=== PATIENT | male | born 1955 | race Caucasian/White ===

== ENCOUNTER 2017-08-08 20:41 | Emergency (ER) | payer OTHER, MEDICAID ==
--- NOTE | 2017-08-08 22:10 | EDPHY ---
General Time Seen by Provider: 08/08/17 22:04 Narrative: CHIEF COMPLAINT: Fall, scalp laceration HISTORY OF PRESENT ILLNESS: Patient presents from [place] with reports of fall. Conflicting reports as to whether this was witnessed or not. He has no complaints other than laceration to the occiput. No headache or neck pain. No chest, back or abdominal pain. No complaints of pain in the extremities. He does have bleeding from the scalp that has stopped with pressure. No numbness, tingling or weakness. The patient is history of Yesenia's dementia with reported baseline of A&O x2. No other associated with small factors REVIEW OF SYSTEMS: Ten systems reviewed and are negative unless otherwise noted in the HPI PCP: Does not know SPECIALISTS: Neurology PAST MEDICAL HISTORY: Addison's, Insulin dependent DM, dementia, depression PAST SURGICAL HISTORY: No recent surgeries SOCIAL HISTORY: Currently resides in [place] with dementia FAMILY HISTORY: Unable to obtain from the patient EXAMINATION General Appearance: Alert, no distress Head: normocephalic. No Hatch sign. No raccoon eyes. There is a 2.5 cm laceration with a transverse lie over the occiput. No pulsatile bleeding. No foreign body. No injury to the galea. Eyes: Pupils equal and round, no conjunctival pallor or injection. EOM symmetric ENT, Mouth: Mucous membranes moist Neck: Normal inspection, supple, non-tender Respiratory: Lungs are clear to auscultation Cardiovascular: Regular rate and rhythm. No murmur Gastrointestinal: Abdomen is soft and nontender Back: non-tender, no bony abnormalities Neurological: Alert to person and place. No focal deficits. Strength is symmetric in all 4 limbs. Skin: Warm and dry, no rash. No petechiae or purpura. Scalp laceration as above Extremities: Nontender, no pedal edema. Moving all 4 extremities spontaneously Psychiatric: Mood and affect normal DIFFERENTIAL DIAGNOSES: Including but not limited to intracranial hemorrhage, concussion, skull fracture , laceration, sprain, strain, rib fracture, pneumothorax, hemothorax MDM: 10:10 p.m. Reported mechanical fall with scalp laceration to the occiput. He is awake and alert to baseline. He has no complaints of pain anywhere. He does have borderline hypoxemia that is positional. He does not appear to be on supplemental oxygen at his residence. I have ordered CT scans of the head and cervical spine due to baseline dementia and mechanical fall. He will require scalp laceration repair. 10:40 p.m. Laceration has been anesthetized. Proceed with irrigation closure. Chest x- ray is unremarkable as read by me without the aid of the radiologist. CT scans are pending 11:15 p.m. Notified by radiologist Dr. Alejandro. There are no acute findings on the CT scans of the head and cervical spine. 11:20 p.m. Patient re-evaluated. I have repaired the scalp laceration without difficulty. He remains alert to baseline. He is ambulated with his walker without difficulty. Vital signs remained stable. He will be discharged back to his residence at [place]. RN is calling Report. He will need to return here in 10 days for staple removal or have the removed there. PROCEDURE: Laceration repair Consent: Verbal Location: Occipital scalp Length of repair: 2.5 cm Complexity: Simple Layer involvement: Single Anesthesia: Local. 0.5% Marcaine with epinephrine. 5 mL Irrigation: Extensive Debridement: None Procedure description: Following good anesthesia, the wound was copiously irrigated. Wound bed was explored with a sterile glove, and there is no foreign body noted. No injury to the galea Wound borders were approximated well with good hemostasis. Tolerated well without complication. Suture/Staple material: [place] 5 Wound care: Routine as discussed Suture/Staple removal: 10 Days SUPERVISION: Patient was independently examined, but I discussed the case with my secondary supervising physician . Patient was evaluated and examined in conjunction with my secondary supervising physician as documented. We have both examined the patient. - Objective Vital Signs: Initial Vital Signs Temperature (C) 98.2 F 08/08/17 21:22 Heart Rate 64 08/08/17 21:22 Respiratory Rate 20 08/08/17 21:22 Blood Pressure 100/64 08/08/17 21:22 O2 Sat (%) 94 08/08/17 21:22 O2 Delivery Mode Room Air Allergies/Adverse Reactions: No Known Allergies Allergy (Unverified 08/08/17 20:52) Home Medications: Medication Instructions Recorded Abilify 08/08/17 Cholecalciferol (Vitamin D3) 08/08/17 Haloperidol 08/08/17 Lantus 08/08/17 Metformin HCl 08/08/17 Exira-3 08/08/17 Pravastatin Sodium 08/08/17 Sertraline HCl 08/08/17 Tetrabenazine 08/08/17 Laboratory Results: 08/08/17 21:30 POC Glucose 153 mg/dL H mg/dL (70-100) Point of Care Test Results: 08/08/17 21:30 POC Glucose 153 H Departure - Departure Disposition: Home, Routine, Self-Care Clinical Impression: Scalp laceration Qualifiers: Encounter type: initial encounter Qualified Code(s): S01.01XA - Laceration without foreign body of scalp, initial encounter Closed head injury Qualifiers: Encounter type: initial encounter Qualified Code(s): S09.90XA - Unspecified injury of head, initial encounter Condition: Good Instructions: Head Injury (ED), Staple Care (ED) Additional Instructions: 1. Daily irrigation of the wound and thin layer bacitracin applied 2. Kati will need to be removed in 10 days Referrals: Patient,NotPresent [Primary Care Provider] - As per Instructions
[2017-08-08] MEDS ORDERED: TDAP ADULT 0.5 ML INJ (BOOSTRIX) IM ONE (23:32)
[2017-08-09 00:30] VITALS: BP 147/70
== END 2017-08-09 00:30 | disposition home or self-care (01) ==
PROC: 0HQ0XZZ Repair Scalp Skin, External Approach (ICD-10-PCS; principal; 2017-08-08)
DX: S01.01XA Laceration without foreign body of scalp, initial encounter (principal); E11.9 Type 2 diabetes mellitus without complications; Z23 Encounter for immunization; Z79.4 Long term (current) use of insulin; Z79.84 Long term (current) use of oral hypoglycemic drugs; W18.39XA Other fall on same level, initial encounter; Y99.8 Other external cause status